=== PATIENT | male | born 1950 | race American Indian/Alaskan Native ===

== ENCOUNTER 2017-04-09 11:19 | Inpatient (IN) | payer MEDICARE ==
[2017-04-09] MEDS ORDERED: NACL 0.9% 1000 ML 1,000 ML ONE (11:38)
[2017-04-09] MEDS ORDERED: NACL 0.9% 1000 ML 1,000 ML IV ONE (11:48)
[2017-04-09 12:05] LABS: Basophils % (Auto) 0.7 % (0.0-1.8); Eosinophils % (Auto) 0.9 % (0.0-4.3); Mean Corpuscular HGB Conc 30 % (32-34); Mean Corpuscular Hemoglobin 28 pg (28-32); Mean Corpuscular Volume 93 fl (84-94); Platelet Count 408 K/mm3 (140-440); Red Blood Count 4.18 M/mm3 (3.65-5.03); Red Cell Distribution Width 19.1 % (13.2-15.2); White Blood Count 7.3 K/mm3 (4.5-11.0)
[2017-04-09 12:14] LABS: INR 0.92 (0.87-1.13)
[2017-04-09 12:15] LABS: Partial Thromboplastin Time 27.4 Sec. (24.2-36.6)
[2017-04-09 12:16] LABS: Hematocrit 38.7 % (35.5-45.6); Hemoglobin 11.6 gm/dl (11.8-15.2)
[2017-04-09] MEDS ORDERED: XOPENEX IH ONE ×4 (12:20→13:20)
[2017-04-09 12:23] LABS: Creatine Kinase MB 14.8 ng/mL (0.0-4.0)
[2017-04-09 12:24] LABS: Anion Gap 14 mmol/L; Blood Urea Nitrogen 24 mg/dL (9-20); Calcium 8.4 mg/dL (8.4-10.2); Carbon Dioxide 33 mmol/L (22-30); Chloride 106.1 mmol/L (98-107); Creatine Kinase 148 units/L (55-170); Glucose 83 mg/dL (75-100); Potassium 3.7 mmol/L (3.6-5.0); Sodium 149 mmol/L (137-145)
--- NOTE | 2017-04-09 12:33 | Emergency Department Report ---
ED Shortness of Breath HPI - General Chief Complaint: Arrhythmia/Palpitations Stated Complaint: ANNA Time Seen by Provider: 04/09/17 12:19 Source: patient, EMS Mode of arrival: Stretcher Limitations: No Limitations - History of Present Illness Initial Comments: Patient is a 66-year-old male known history of COPD coming with difficulty in breathing for the last 2-3 days just got worse today denied any fever nausea or vomiting no chest pain. MD Complaint: shortness of breath, cough -: Gradual Consistency: constant Improves With: bronchodilators Known History Of: COPD Associated Symptoms: pain with inspiration, cough, orhopnia Treatments Prior to Arrival: oxygen, bronchodilator - Related Data Allergies Allergy/AdvReac Type Severity Reaction Status Date / Time No Known Allergies Allergy Unverified 04/09/17 11:33 ED Review of Systems ROS: Stated complaint: ANNA Other details as noted in HPI Comment: All other systems reviewed and negative Constitutional: denies: chills, fever Respiratory: cough, orthopnea, shortness of breath, SOB with exertion, SOB at rest, wheezing. denies: stridor Cardiovascular: dyspnea on exertion, orthopnea. denies: chest pain, palpitations Gastrointestinal: denies: abdominal pain, nausea, vomiting, diarrhea, hematemesis Neurological: denies: headache, numbness, paresthesias ED Past Medical Hx - Past Medical History Previous Medical History?: Yes Hx Hypertension: Yes Hx Asthma: Yes Hx COPD: Yes Additional medical history: Cataracts - Surgical History Past Surgical History?: No - Social History Smoking Status: Former Smoker Substance Use Type: None ED Physical Exam - General Limitations: No Limitations General appearance: alert, in distress - Head Head exam: Present: atraumatic, normocephalic - Eye Eye exam: Present: normal appearance - ENT ENT exam: Present: normal exam - Neck Neck exam: Present: normal inspection, full ROM. Absent: tenderness, meningismus, lymphadenopathy, thyromegaly - Respiratory Respiratory exam: Present: respiratory distress, wheezes, rales, rhonchi, decreased breath sounds, prolonged expiratory. Absent: stridor, chest wall tenderness - Cardiovascular Cardiovascular Exam: Present: tachycardia - GI/Abdominal GI/Abdominal exam: Present: soft. Absent: tenderness, guarding, rebound, rigid - Back Exam Back exam: Present: normal inspection. Absent: CVA tenderness (R), CVA tenderness (L) - Neurological Exam Neurological exam: Present: alert, oriented X3, CN II-XII intact - Skin Skin exam: Present: warm. Absent: dry, intact, normal color ED Course Vital Signs 04/09/17 04/09/17 04/09/17 11:23 12:25 12:44 Temperature 98 F Pulse Rate 157 H 154 H Pulse Rate [ 150 H 152 H Anterior Bilateral Throughout] Respiratory 21 Rate Respiratory 27 H 25 H Rate [Anterior Bilateral Throughout] Blood Pressure 103/79 Blood Pressure 104/60 [Left] O2 Sat by Pulse 100 100 Oximetry 04/09/17 04/09/17 04/09/17 13:17 13:21 13:31 Temperature 97.4 F L Pulse Rate 107 H 102 H Pulse Rate [ 108 H Anterior Bilateral Throughout] Respiratory 26 H 21 Rate Respiratory 27 H Rate [Anterior Bilateral Throughout] Blood Pressure 123/72 Blood Pressure 116/65 [Left] O2 Sat by Pulse 100 100 Oximetry - Reevaluation(s) Reevaluation #1: 04/09/17 14:02 improved with bipap. discuss with DR Logan for admission. ED Medical Decision Making - Lab Data Result diagrams: 04/09/17 11:43 04/09/17 11:43 Critical care attestation.: If time is entered above; I have spent that time in minutes in the direct care of this critically ill patient, excluding procedure time. ED Disposition Clinical Impression: Acute respiratory failure with hypercapnia Disposition: OP ADMIT IP TO THIS HOSP Is pt being admited?: Yes Condition: Stable Referrals: CHRIS STANLEY MD [Primary Care Provider] - 3-5 Days
--- NOTE | 2017-04-09 12:49 | XRay Report ---
AP CHEST: HISTORY: Dysrhythmia, palpitations The lungs are hyperinflated. There is a focal opacity along the left hemidiaphragm behind the heart which probably represents eventration of the left hemidiaphragm. No convincing pneumonia, pleural effusion or pneumothorax. Heart size and pulmonary vascularity are within normal limits. IMPRESSION: Mild hyperinflation.
[2017-04-09 12:55] LABS: Alanine Aminotransferase 9 units/L (7-56); Albumin 3.3 g/dL (3.9-5); Albumin/Globulin Ratio 1.4 %; Alkaline Phosphatase 42 units/L (35-129); Total Protein 5.6 g/dL (6.3-8.2)
[2017-04-09] MEDS ORDERED: ATROVENT IH ONE ×2 (12:55→13:20)
[2017-04-09 12:57] LABS: Bilirubin,Direct < 0.2 mg/dL (0-0.2)
[2017-04-09 13:08] LABS: ISTAT Base Excess 4; ISTAT PCO2 78.6 (35-45); ISTAT PH 7.218 (7.35-7.45); ISTAT PO2 82 (80-105); ISTAT SO2 93; ISTAT TCO2 34
[2017-04-09 13:11] LABS: Cholesterol 206 mg/dL (50-199); HDL Cholesterol 114 mg/dL (40-59); LDL Cholesterol,Direct 78 mg/dL (50-130); Triglycerides 72 mg/dL (2-149)
--- NOTE | 2017-04-09 13:36 | Admit Criteria Form ---
Admission Criteria Documentation: RESPIRATORY FAILURE GRG Clinical Indications for Admission to Inpatient Care (Place 'X' for any and all applicable criteria): Hospital admission is needed for appropriate care of the patient because of acute respiratory failure or insufficiency as indicated by ANY ONE of the following(1)(2)(3)(4)(5)(6)(7)(8): [ ]I. Mechanical ventilation needed (acute invasive or noninvasive) [X]II. Severe ventilation deficit as indicated by ANY ONE of the following (9) [X]a) Respiratory acidosis (pH less than 7.32 and partial pressure of carbon dioxide greater than 40 mm Hg (5.3 kPa)) [X]b) Partial pressure of carbon dioxide greater than 44 mm Hg (5.9 kPa ) (new) [ ]c) Airflow measurements less than 25% of predicted (eg, peak expiratory flow rate less than 100 L/minute) [ ]d) Forced vital capacity less than 15 mL/kg of ideal body weight, or 50% decrease in vital capacity from baseline [ ]III. Noncardiac pulmonary edema not resolving with rapid emergency treatment (8) [ ]IV. Severe respiratory distress as indicated by ANY ONE of the following: [ ]a) Severe tachypnea (respiratory rate greater than 30, greater than 45 for 6-month-old, greater than 60 for ) [ ]b) Severe hypoxemia (partial pressure of oxygen less than 50 mm Hg ( 6.7 kPa) on greater than 50% oxygen or partial pressure of oxygen to FIO2 ratio less than 200) [ ]c) Mental status deterioration from respiratory disease [ ]V. Airway obstruction or inadequate protection [A](10)(11) The original [employer] content created by [employer] has been revised. The portions of the content which have been revised are identified through the use of italic text or in bold, and [facility] has neither reviewed nor approved the modified material. All other unmodified content is copyright [employer]. Please see references footnoted in the original [employer] edition 2016 Admission Criteria Met: Yes
[2017-04-09] MEDS ORDERED: TYLENOL PO PRN (14:19)
[2017-04-09] MEDS ORDERED: ZOFRAN IV PRN (14:19)
[2017-04-09] MEDS ORDERED: MILK OF MAGNESIA PO PRN (14:19)
[2017-04-09] MEDS ORDERED: DULCOLAX PR PRN (14:19)
[2017-04-09] MEDS ORDERED: DILAUDID IV PRN (14:19)
--- NOTE | 2017-04-09 14:19 | History and Physical Report ---
History of Present Illness Date of examination: 04/09/17 Date of admission: 04/09/17 Chief complaint: Increasing SOB for 1 week Altered sensorium for 1 day History of present illness: DUANE: Sent from Customer Account Coordinator office for SOB and Altered sensorium.Was due for cataract surgery and he was in Tachycardia /boz of which patient was sent by EMS.Patient fluctuates between normal mental status and confusionl.No fever/ Chills. Also some chest discomfort off and on. Past History Past Medical History: COPD, hypertension Past Surgical History: No surgical history Social history: lives with family, smoking Family history: hypertension Medications and Allergies Allergies Allergy/AdvReac Type Severity Reaction Status Date / Time No Known Allergies Allergy Unverified 04/09/17 11:33 Home Medications Medication Instructions Recorded Confirmed Last Taken Type Brinzolamide/Brimonidine Tart 8 ml OP TID 04/09/17 04/09/17 04/09/17 History [Simbrinza 1%-0.2% Eye Drops] Clopidogrel Bisulfate [Plavix] 75 mg PO DAILY 04/09/17 04/09/17 04/09/17 History Fluticasone/Salmeterol [Advair 1 puff IH BID 04/09/17 04/09/17 04/09/17 History Diskus 500-50 mcg] LORazepam [Ativan] 0.5 mg PO PRN 04/09/17 04/09/17 Unknown History Theophylline Anhydrous [Baldomero-24] 300 mg PO BID 04/09/17 04/09/17 04/09/17 History Review of Systems All systems: negative Cardiovascular: chest pain, shortness of breath Respiratory: shortness of breath, dyspnea on exertion, congestion Exam - Physical Exam Narrative exam: In Moderate resp distress - Constitutional Vitals: Temp Pulse Resp BP Pulse Ox 97.4 F L 102 H 21 116/65 100 04/09/17 13:31 04/09/17 13:31 04/09/17 13:31 04/09/17 13:31 04/09/17 13:31 General appearance: Present: severe distress, well-nourished - EENT Eyes: Present: PERRL ENT: hearing intact, clear oral mucosa - Neck Neck: Present: supple, normal ROM - Respiratory Respiratory effort: normal Respiratory: bilateral: diminished, rales, rhonchi - Cardiovascular Heart rate: 158 Heart Sounds: Present: S1 & S2. Absent: rub, click - Extremities Extremities: pulses symmetrical, No edema Peripheral Pulses: within normal limits - Abdominal General gastrointestinal: Present: soft, non-tender, non-distended, normal bowel sounds Male genitourinary: Present: normal - Integumentary Integumentary: Present: clear, warm, dry - Musculoskeletal Musculoskeletal: gait normal, strength equal bilaterally - Psychiatric Psychiatric: appropriate mood/affect, intact judgment & insight - Neurologic Neurologic: CNII-XII intact, moves all extremities Results - Labs CBC & Chem 7: 04/10/17 04:50 04/10/17 04:50 Labs: Laboratory Last Values WBC 7.3 K/mm3 (4.5-11.0) 04/09/17 11:43 RBC 4.18 M/mm3 (3.65-5.03) 04/09/17 11:43 Hgb 11.6 gm/dl (11.8-15.2) L 04/09/17 11:43 Hct 38.7 % (35.5-45.6) 04/09/17 11:43 MCV 93 fl (84-94) 04/09/17 11:43 MCH 28 pg (28-32) 04/09/17 11:43 MCHC 30 % (32-34) L 04/09/17 11:43 RDW 19.1 % (13.2-15.2) H 04/09/17 11:43 Plt Count 408 K/mm3 (140-440) 04/09/17 11:43 Lymph % (Auto) 12.8 % (13.4-35.0) L 04/09/17 11:43 [place] % (Auto) 12.4 % (0.0-7.3) H 04/09/17 11:43 Eos % (Auto) 0.9 % (0.0-4.3) 04/09/17 11:43 Baso % (Auto) 0.7 % (0.0-1.8) 04/09/17 11:43 Lymph # 0.9 K/mm3 (1.2-5.4) L 04/09/17 11:43 [place] # 0.9 K/mm3 (0.0-0.8) H 04/09/17 11:43 Eos # 0.1 K/mm3 (0.0-0.4) 04/09/17 11:43 Baso # 0.1 K/mm3 (0.0-0.1) 04/09/17 11:43 Seg Neutrophils % 73.2 % (40.0-70.0) H 04/09/17 11:43 Seg Neutrophils # 5.4 K/mm3 (1.8-7.7) 04/09/17 11:43 PT 12.8 Sec. (12.2-14.9) 04/09/17 11:43 INR 0.92 (0.87-1.13) 04/09/17 11:43 APTT 27.4 Sec. (24.2-36.6) 04/09/17 11:43 D-Dimer 257.5 ng/mlDDU (0-234) H 04/09/17 11:43 POC ABG pH 7.218 (7.35-7.45) L 04/09/17 12:50 POC ABG pCO2 78.6 (35-45) H 04/09/17 12:50 POC ABG pO2 82 (80-105) 04/09/17 12:50 POC ABG HCO3 32.0 04/09/17 12:50 POC ABG Total CO2 34 04/09/17 12:50 POC ABG O2 Sat 93 04/09/17 12:50 POC ABG Base Excess 4 04/09/17 12:50 FiO2 28 % 04/09/17 12:50 Sodium 149 mmol/L (137-145) H 04/09/17 11:43 Potassium 3.7 mmol/L (3.6-5.0) 04/09/17 11:43 Chloride 106.1 mmol/L (98-107) 04/09/17 11:43 Carbon Dioxide 33 mmol/L (22-30) H 04/09/17 11:43 Anion Gap 14 mmol/L 04/09/17 11:43 BUN 24 mg/dL (9-20) H 04/09/17 11:43 Creatinine 0.5 mg/dL (0.8-1.5) L 04/09/17 11:43 Estimated GFR > 60 ml/min 04/09/17 11:43 BUN/Creatinine Ratio 48.00 % 04/09/17 11:43 Glucose 83 mg/dL (75-100) 04/09/17 11:43 Calcium 8.4 mg/dL (8.4-10.2) 04/09/17 11:43 Total Bilirubin 0.20 mg/dL (0.1-1.2) 04/09/17 11:43 Direct Bilirubin < 0.2 mg/dL (0-0.2) 04/09/17 11:43 AST 17 units/L (5-40) 04/09/17 11:43 ALT 9 units/L (7-56) 04/09/17 11:43 Alkaline Phosphatase 42 units/L (35-129) 04/09/17 11:43 Total Creatine Kinase 148 units/L (55-170) 04/09/17 11:43 CK-MB (CK-2) 14.8 ng/mL (0.0-4.0) H 04/09/17 11:43 CK-MB (CK-2) Rel Index 10.0 (0-4) H 04/09/17 11:43 Troponin T 0.108 ng/mL (0.00-0.029) H* 04/09/17 11:43 NT-Pro-B Natriuret Pep 2024 pg/mL (0-900) H 04/09/17 11:43 Total Protein 5.6 g/dL (6.3-8.2) L 04/09/17 11:43 Albumin 3.3 g/dL (3.9-5) L 04/09/17 11:43 Albumin/Globulin Ratio 1.4 % 04/09/17 11:43 Triglycerides 72 mg/dL (2-149) 04/09/17 11:43 Cholesterol 206 mg/dL (50-199) H 04/09/17 11:43 LDL Cholesterol Direct 78 mg/dL (50-130) 04/09/17 11:43 HDL Cholesterol 114 mg/dL (40-59) H 04/09/17 11:43 Cholesterol/HDL Ratio 1.80 % 04/09/17 11:43 Short CBC 04/09/17 04/09/17 04/10/17 Range/Units 11:43 14:57 04:50 WBC 7.3 8.5 7.2 (4.5-11.0) K/mm3 Hgb 11.6 L 11.2 L 10.1 L (11.8-15.2) gm/dl Hct 38.7 36.5 33.1 L (35.5-45.6) % Plt Count 408 394 357 (140-440) K/mm3 BMP 04/09/17 04/10/17 11:43 04:50 Sodium 149 H 145 Potassium 3.7 4.5 D Chloride 106.1 105.3 Carbon Dioxide 33 H 28 BUN 24 H 23 H Creatinine 0.5 L 0.5 L Glucose 83 104 H Calcium 8.4 8.2 L Cardiac Enzymes 04/09/17 Range/Units 11:43 Total Creatine Kinase 148 (55-170) units/L CK-MB (CK-2) 14.8 H (0.0-4.0) ng/mL Troponin T 0.108 H* (0.00-0.029) ng/mL Liver Function 04/09/17 04/10/17 Range/Units 11:43 04:50 Total Bilirubin 0.20 0.30 (0.1-1.2) mg/dL Direct Bilirubin < 0.2 (0-0.2) mg/dL AST 17 15 (5-40) units/L ALT 9 8 (7-56) units/L Alkaline Phosphatase 42 38 (35-129) units/L Albumin 3.3 L 3.1 L (3.9-5) g/dL - Imaging and Cardiology EKG: report reviewed (156/min Marked ST abnormality) Chest x-ray: report reviewed (Mild Hyperinflation) Assessment and Plan Advance Directives: Yes (FC) VTE prophylaxis?: Chemical Plan of care discussed with patient/family: Yes - Patient Problems (1) Acute respiratory failure with hypercapnia Current Visit: Yes Status: Acute Plan to address problem: Patient initiated on BIPAP IV solumedrol IV Levaquin and Duonebs q3HPRN and q6 RTC.Pulmonary consult requested. CTA ordered (2) COPD exacerbation Current Visit: Yes Status: Acute Plan to address problem: As above (3) Chest pain Current Visit: Yes Status: Acute Qualifiers: Chest pain type: unspecified Ischemic chest pain type: I Qualified Code(s ): R07.9 - Chest pain, unspecified Plan to address problem: Lexiscan for !0th b/c of CTA (4) HTN (hypertension) Current Visit: Yes Status: Chronic Qualifiers: Hypertension type: essential hypertension Qualified Code(s): I10 - Essential (primary) hypertension Plan to address problem: Cont Antihypertensives (5) Tachycardia Current Visit: Yes Status: Acute Plan to address problem: As a manifestation of resp failure.Should resolve with improving resp failure. (6) DVT prophylaxis Current Visit: Yes Status: Acute Plan to address problem: on lovenox
[2017-04-09] MEDS ORDERED: DUONEB *Not for PRN Use IH ×2 (14:27→19:59)
[2017-04-09] MEDS ORDERED: DUONEB *Not for PRN Use IH ONE (14:32)
[2017-04-09] MEDS ORDERED: PROVENTIL IH PRN ×2 (14:35→20:08)
[2017-04-09] MEDS: DUONEB *Not for PRN Use IH SCH ×2 (14:36→21:50)
[2017-04-09 15:29] LABS: Basophils % (Auto) 0.6 % (0.0-1.8); Eosinophils % (Auto) 0.4 % (0.0-4.3); Hematocrit 36.5 % (35.5-45.6); Hemoglobin 11.2 gm/dl (11.8-15.2); Mean Corpuscular HGB Conc 31 % (32-34); Mean Corpuscular Hemoglobin 28 pg (28-32); Mean Corpuscular Volume 92 fl (84-94); Platelet Count 394 K/mm3 (140-440); Red Blood Count 3.97 M/mm3 (3.65-5.03); Red Cell Distribution Width 19.1 % (13.2-15.2); White Blood Count 8.5 K/mm3 (4.5-11.0)
[2017-04-09 17:00] LABS: ISTAT Base Excess 6; ISTAT HCO3 32.5; ISTAT PCO2 68.7 (35-45); ISTAT PH 7.283 (7.35-7.45); ISTAT PO2 71 (80-105); ISTAT SO2 91; ISTAT TCO2 35
[2017-04-09] MEDS: LEVAQUIN 750MG/150ML 750 MG/150 ML BAG IV SCH (18:00)
--- NOTE | 2017-04-09 19:11 | Event Note ---
Date: 04/09/17 thank you for asking us to participate in the care of this patient. Full consultation dictated.Dictation consultation number [id number]. IMMPRESSION: 1. Acute on chronic hypercapnic respiratory failure. 2. Exagerbation of COPD. 3. Acute bronchitis. 4. HTN. PLAN: 1.BIPAP 20/6, rate 20, FIO2 30%. 2.Albuterol/atrovent aerosol treatments q 6 hours. 3.Continue I/V solumedral. 4.Continue Levaquine. 5.Continue Lovenox. 6.Recommend to D/C Theophylline. 7. Ango CT of the chest.
[2017-04-09] MEDS ORDERED: BRINZOLAMIDE OP SCH ×2 (20:00)
[2017-04-09] MEDS ORDERED: BRIMONIDINE TART OP SCH ×2 (20:00)
[2017-04-09] MEDS ORDERED: ATIVAN PO SCH (20:00)
[2017-04-09] MEDS: PULMICORT IH SCH (21:50)
[2017-04-09] MEDS ORDERED: THEO-24 PO SCH (22:00)
[2017-04-09] MEDS ORDERED: NON-FORMULARY (Fluticasone/Salmeterol [Advair Diskus 500-50 Mcg] 1 PUFF) IH SCH (22:00)
[2017-04-09] MEDS ORDERED: LOVENOX SUB-Q SCH (22:00)
[2017-04-09] MEDS: PLAVIX PO SCH (22:23)
[2017-04-09 23:17] LABS: ISTAT Base Excess 8; ISTAT HCO3 32.2; ISTAT PCO2 51.2 (35-45); ISTAT PH 7.406 (7.35-7.45); ISTAT PO2 110 (80-105); ISTAT SO2 98; ISTAT TCO2 34
[2017-04-10] MEDS: DUONEB *Not for PRN Use IH SCH ×4 (02:30→20:21)
--- NOTE | 2017-04-10 03:39 | Consultation ---
CONSULTED BY: Dr. Elizabeth Logan. PAINT PREPARER: Dr. Titi Morales. REASON FOR CONSULTATION: 1. Acute on chronic hypercapnic respiratory failure. 2. Exacerbation of COPD. 3. Acute bronchitis. Dr. Logan: Thank you for asking me to participate in the care of this patient. This is a 66-year-old -[place] male who came to the Emergency Room with a complaint of palpitations, shortness of breath and cough. The patient's blood gas obtained showed a pH 7.21, pCO2 of 79, pO2 of 82, bicarbonate 34 and O2 saturation 93% on 2 liters of O2. The patient in acute on chronic hypercapnic respiratory failure and the patient placed on BiPAP 20/6 rate of 20, FiO2 of 30%. The patient has a history of COPD. He has a heavy history of smoking 3 packs a day for almost 30 years. He said he stopped smoking recently. He denies any alcohol or drug abuse. 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 He is . He has 4 children. ALLERGIES: He denies any allergies to medications. PAST MEDICAL HISTORY: He has a history of hypertension and COPD. He denies other medical problems. The patient's chest x-ray obtained in the Emergency Room reported mild hyperinflation. PHYSICAL EXAMINATION: GENERAL: The patient on BiPAP, having a mild shortness of breath. VITAL SIGNS: Temperature 97.6, pulse 103, respirations 21 and blood pressure 120/80. HEENT: Eyes, pupils are equal and reactive. Extraocular muscles intact. Throat, there is slight inflammation. NECK: Supple, no lymphadenopathy, no carotid bruit. HEART: Regular rate and rhythm at the rate of 100. LUNGS: No wheezes, no rhonchi, but there is prolonged expiratory phase. ABDOMEN: Soft, bowel sounds present. No CVA tenderness. MUSCULOSKELETAL: No edema, no clubbing, no cyanosis. NEUROLOGIC: DTR present. Babinski negative. No focal neurological deficit. LABORATORY RESULTS: CBC: WBC 8.5, hemoglobin 11.2, hematocrit 32.5, platelet count 394,000. PT 12.8, INR 0.92, PTT 27.4, D-dimer 267.5 is high. CMP, sodium 140, potassium 3.7, BUN 24, creatinine 0.5 and O2 is 0.5, troponin level 0.1, BNP 2024, CPK 148, CK-MB 42.8. Cholesterol 206, LDL 78, HDL 114. IMPRESSION: 1. Acute on chronic hypercapnic respiratory failure. 2. Exacerbation of chronic obstructive pulmonary disease. 3. Acute bronchitis. 4. Hypertension. PLAN: 1. BiPAP 20/6, rate of 20, FiO2 of 50%. 2. Albuterol and Atrovent q. 6 hours. 3. Continue IV Solu-Medrol. 4. Continue Levaquin. 5. Continue Lovenox. 6. Recommend to discontinue theophylline. 7. Angio CT of the chest. I want to thank Dr. Logan for this consultation. I will follow the patient with him. JOB# [id number] RSPrince/NTS
[2017-04-10 06:02] LABS: Hematocrit 33.1 % (35.5-45.6); Hemoglobin 10.1 gm/dl (11.8-15.2); Mean Corpuscular HGB Conc 31 % (32-34); Mean Corpuscular Hemoglobin 28 pg (28-32); Mean Corpuscular Volume 93 fl (84-94); Platelet Count 357 K/mm3 (140-440); Red Blood Count 3.58 M/mm3 (3.65-5.03); White Blood Count 7.2 K/mm3 (4.5-11.0)
[2017-04-10 06:23] LABS: Alanine Aminotransferase 8 units/L (7-56); Albumin 3.1 g/dL (3.9-5); Albumin/Globulin Ratio 1.5 %; Alkaline Phosphatase 38 units/L (35-129); Anion Gap 16 mmol/L; Blood Urea Nitrogen 23 mg/dL (9-20); Calcium 8.2 mg/dL (8.4-10.2); Carbon Dioxide 28 mmol/L (22-30); Chloride 105.3 mmol/L (98-107); Glucose 104 mg/dL (75-100); Potassium 4.5 mmol/L (3.6-5.0); Sodium 145 mmol/L (137-145); Total Protein 5.2 g/dL (6.3-8.2)
[2017-04-10 07:08] LABS: Basophils % (Manual) 0 % (0.0-1.8); Blastocytes % (Manual) 0 %; Diff Status Complete; Eosinophils % (Manual) 0 % (0.0-4.3); Platelet Estimate Consistent w Auto; RBC Morphology Normal
[2017-04-10] MEDS: BROVANA NEBU IH SCH ×2 (08:40→20:21)
[2017-04-10] MEDS: PULMICORT IH SCH ×2 (08:40→20:21)
[2017-04-10] MEDS ORDERED: NACL ONE (08:44)
--- NOTE | 2017-04-10 10:36 | Cat Scan Report ---
CT angiography of the chest including 3-D reconstructed images. History: Elevated d-dimer. Findings: There is no evidence of pulmonary embolus. Emphasematous changes are seen within the lungs, but no focal infiltrates or nodules are seen. There is a small right pleural effusion. The mediastinum and hilar regions are normal. Impression: No evidence of pulmonary emboli. COPD findings are noted. There is a tiny right pleural effusion.
[2017-04-10] MEDS: PLAVIX PO SCH (10:49)
[2017-04-10] MEDS: LEVAQUIN 750MG/150ML 750 MG/150 ML BAG IV SCH (10:50)
--- NOTE | 2017-04-10 14:22 | Progress Note ---
Assessment and Plan Patient resting on 2 litres O2. O2 saturation 100%. Patient still weak. No acute respiratory distress. - Patient Problems (1) Acute respiratory failure with hypercapnia Current Visit: Yes Status: Acute Plan to address problem: Continue BIPAP. Albuterol/atrovent aerosol treatments. Continue I/V solumedral Continue Levaquine. Continue S/C Lovenox. (2) COPD exacerbation Current Visit: Yes Status: Acute Plan to address problem: Continue BIPAP. Albuterol/atrovent aerosol treatments. Continue I/V solumedral Continue Levaquine. Continue S/C Lovenox. (3) HTN (hypertension) Current Visit: Yes Status: Chronic Qualifiers: Hypertension type: essential hypertension Qualified Code(s): I10 - Essential (primary) hypertension Plan to address problem: Management as per primary care. Subjective Date of service: 04/10/17 Interval history: Patient resting on 2 litres O2. O2 saturation 100%. Patient still weak. No acute respiratory distress. Objective Vital Signs - 12hr 04/10/17 04/10/17 04/10/17 02:32 02:44 04:00 Temperature 98.1 F Pulse Rate 99 H 109 H Pulse Rate [ 108 H 99 H Anterior Bilateral Throughout] Respiratory 22 18 Rate Respiratory 22 20 Rate [Anterior Bilateral Throughout] Blood Pressure 123/90 O2 Sat by Pulse 99 97 Oximetry 04/10/17 04/10/17 08:00 12:05 Temperature 97.5 F L 98.1 F Pulse Rate 100 H 114 H Pulse Rate [ Anterior Bilateral Throughout] Respiratory 18 18 Rate Respiratory Rate [Anterior Bilateral Throughout] Blood Pressure 114/80 126/80 O2 Sat by Pulse 100 100 Oximetry Constitutional: no acute distress, alert Eyes: non-icteric ENT: oropharynx moist Neck: supple, no lymphadenopathy Ascultation: Bilateral: diminished breath sounds Cardiovascular: regular rate and rhythm Gastrointestinal: normoactive bowel sounds, soft, non-tender Integumentary: normal Extremities: no cyanosis, no edema Neurologic: normal mental status, non-focal exam, pupils equal and round, CN II- XII normal Psychiatric: depressed CBC and BMP: 04/10/17 04:50 04/10/17 04:50 ABG, PT/INR, D-dimer: ABG POC ABG pH 7.406 (7.35-7.45) 04/09/17 21:02 POC ABG pCO2 51.2 (35-45) H 04/09/17 21:02 POC ABG pO2 110 (80-105) H 04/09/17 21:02 POC ABG HCO3 32.2 04/09/17 21:02 POC ABG Total CO2 34 04/09/17 21:02 POC ABG O2 Sat 98 04/09/17 21:02 PT/INR, D-dimer PT 12.8 Sec. (12.2-14.9) 04/09/17 11:43 INR 0.92 (0.87-1.13) 04/09/17 11:43 D-Dimer 257.5 ng/mlDDU (0-234) H 04/09/17 11:43 Abnormal lab findings: Abnormal Labs 04/09/17 04/09/17 04/09/17 14:57 16:42 21:02 RBC Hgb 11.2 L Hct MCHC 31 L RDW 19.1 H Lymph % (Auto) 7.9 L Lymph # 0.7 L Seg Neutrophils % 86.9 H Seg Neuts % (Manual) Lymphocytes % (Manual) Lymphocytes # (Manual) POC ABG pH 7.283 L POC ABG pCO2 68.7 H 51.2 H POC ABG pO2 71 L 110 H BUN Creatinine Glucose Calcium CK-MB (CK-2) CK-MB (CK-2) Rel Index Total Protein Albumin 04/10/17 04/10/17 04/10/17 04:50 04:50 11:37 RBC 3.58 L Hgb 10.1 L Hct 33.1 L MCHC 31 L RDW 19.0 H Lymph % (Auto) Lymph # Seg Neutrophils % Seg Neuts % (Manual) 88.0 H Lymphocytes % (Manual) 8.0 L Lymphocytes # (Manual) 0.6 L POC ABG pH POC ABG pCO2 POC ABG pO2 BUN 23 H Creatinine 0.5 L Glucose 104 H Calcium 8.2 L CK-MB (CK-2) 13.0 H CK-MB (CK-2) Rel Index 13.8 H Total Protein 5.2 L Albumin 3.[address] scan - chest: report reviewed (No pulmonary emboli. changes of COPD. Tiny pleural effusion.)
--- NOTE | 2017-04-10 16:11 | Progress Note ---
Assessment and Plan Acute respiratory failure with hypercapnia Patient initiated on BIPAP IV solumedrol IV Levaquin and Duonebs q3HPRN and q6 RTC.Pulmonary consult requested. CTA ordered COPD exacerbation As above Chest pain Lexiscan tomorrow b/c of CTA was done today troponin trended down HTN (hypertension) Cont Antihypertensives Tachycardia As a manifestation of resp failure. Should resolve with improving resp failure. DVT prophylaxis on lovenox Subjective Date of service: 04/10/17 Interval history: pt seen and examined. denies any chest pain or SOB Objective - Constitutional Vitals: Vital Signs - 12hr 04/10/17 04/10/17 08:00 12:05 Temperature 97.5 F L 98.1 F Pulse Rate 100 H 114 H Respiratory 18 18 Rate Blood Pressure 114/80 126/80 O2 Sat by Pulse 100 100 Oximetry General appearance: Present: no acute distress, other (malnurished) - EENT Eyes: PERRL, EOM intact ENT: hearing intact, clear oral mucosa Ears: bilateral: normal - Neck Neck: supple, normal ROM - Respiratory Respiratory effort: normal Respiratory: bilateral: diminished - Cardiovascular Rhythm: regular Heart Sounds: Present: S1 & S2. Absent: gallop, rub Extremities: pulses intact, No edema, normal color, Full ROM - Gastrointestinal General gastrointestinal: Present: soft, non-tender, non-distended, normal bowel sounds - Integumentary Integumentary: clear, warm, dry - Musculoskeletal Musculoskeletal: 1, strength equal bilaterally - Neurologic Neurologic: moves all extremities - Psychiatric Psychiatric: memory intact, appropriate mood/affect, intact judgment & insight - Labs CBC & Chem 7: 04/10/17 04:50 04/10/17 04:50 Labs: Abnormal lab results 04/09/17 04/09/17 04/10/17 Range/Units 16:42 21:02 04:50 RBC 3.58 L (3.65-5.03) M/mm3 Hgb 10.1 L (11.8-15.2) gm/dl Hct 33.1 L (35.5-45.6) % MCHC 31 L (32-34) % RDW 19.0 H (13.2-15.2) % Seg Neuts % (Manual) 88.0 H (40.0-70.0) % Lymphocytes % (Manual) 8.0 L (13.4-35.0) % Lymphocytes # (Manual) 0.6 L (1.2-5.4) K/mm3 POC ABG pH 7.283 L (7.35-7.45) POC ABG pCO2 68.7 H 51.2 H (35-45) POC ABG pO2 71 L 110 H (80-105) BUN (9-20) mg/dL Creatinine (0.8-1.5) mg/dL Glucose (75-100) mg/dL Calcium (8.4-10.2) mg/dL CK-MB (CK-2) (0.0-4.0) ng/mL CK-MB (CK-2) Rel Index (0-4) Total Protein (6.3-8.2) g/dL Albumin (3.9-5) g/dL 04/10/17 04/10/17 Range/Units 04:50 11:37 RBC (3.65-5.03) M/mm3 Hgb (11.8-15.2) gm/dl Hct (35.5-45.6) % MCHC (32-34) % RDW (13.2-15.2) % Seg Neuts % (Manual) (40.0-70.0) % Lymphocytes % (Manual) (13.4-35.0) % Lymphocytes # (Manual) (1.2-5.4) K/mm3 POC ABG pH (7.35-7.45) POC ABG pCO2 (35-45) POC ABG pO2 (80-105) BUN 23 H (9-20) mg/dL Creatinine 0.5 L (0.8-1.5) mg/dL Glucose 104 H (75-100) mg/dL Calcium 8.2 L (8.4-10.2) mg/dL CK-MB (CK-2) 13.0 H (0.0-4.0) ng/mL CK-MB (CK-2) Rel Index 13.8 H (0-4) Total Protein 5.2 L (6.3-8.2) g/dL Albumin 3.1 L (3.9-5) g/dL - Imaging and cardiology Chest x-ray: report reviewed CT scan - chest: report reviewed
[2017-04-10] MEDS: CARDIZEM PO SCH (21:11)
[2017-04-10] MEDS: LOVENOX SUB-Q SCH (21:12)
[2017-04-10] MEDS ORDERED: COREG PO SCH (22:00)
[2017-04-10] MEDS ORDERED: LOVENOX SUB-Q SCH (22:00)
[2017-04-11] MEDS: DUONEB *Not for PRN Use IH SCH ×4 (01:42→19:55)
[2017-04-11] MEDS: PERCOCET 5/325 PO PRN ×2 (02:16→22:54)
[2017-04-11] MEDS: CARDIZEM PO SCH ×5 (06:34→23:00)
[2017-04-11] MEDS: BROVANA NEBU IH SCH ×2 (08:29→19:55)
[2017-04-11] MEDS: PULMICORT IH SCH ×2 (08:30→19:55)
[2017-04-11] MEDS: LOVENOX SUB-Q SCH ×2 (11:00→22:54)
[2017-04-11] MEDS: PLAVIX PO SCH (11:00)
[2017-04-11] MEDS: LEVAQUIN PO SCH (11:00)
--- NOTE | 2017-04-11 12:28 | Progress Note ---
Subjective Date of service: 04/11/17 Interval history: Seen and examined at bedside; 24 hour events reviewed; nursing and respiratory care staff consulted; no adverse overnight events reported to me; Objective Vital Signs - 12hr 04/11/17 04/11/17 04/11/17 01:00 01:12 05:50 Temperature 98.4 F 97.6 F Pulse Rate 115 H 102 H 101 H Pulse Rate [ Anterior Bilateral Throughout] Respiratory 20 18 Rate Respiratory Rate [Anterior Bilateral Throughout] Blood Pressure 118/84 120/74 O2 Sat by Pulse 97 97 Oximetry 04/11/17 04/11/17 04/11/17 06:39 08:31 08:46 Temperature Pulse Rate 102 H Pulse Rate [ 102 H 106 H Anterior Bilateral Throughout] Respiratory Rate Respiratory 17 20 Rate [Anterior Bilateral Throughout] Blood Pressure O2 Sat by Pulse 97 Oximetry 04/11/17 04/11/17 08:59 09:19 Temperature 97.6 F Pulse Rate 110 H 104 H Pulse Rate [ Anterior Bilateral Throughout] Respiratory 21 20 Rate Respiratory Rate [Anterior Bilateral Throughout] Blood Pressure 167/91 O2 Sat by Pulse 98 97 Oximetry Constitutional: no acute distress, alert Eyes: non-icteric ENT: oropharynx moist Neck: supple, no lymphadenopathy Ascultation: Bilateral: diminished breath sounds Cardiovascular: regular rate and rhythm Gastrointestinal: normoactive bowel sounds, soft, non-tender Integumentary: normal Extremities: no cyanosis, no edema Neurologic: normal mental status, non-focal exam, pupils equal and round, CN II- XII normal Psychiatric: depressed CBC and BMP: 04/10/17 04:50 04/10/17 04:50 ABG, PT/INR, D-dimer: ABG POC ABG pH 7.406 (7.35-7.45) 04/09/17 21:02 POC ABG pCO2 51.2 (35-45) H 04/09/17 21:02 POC ABG pO2 110 (80-105) H 04/09/17 21:02 POC ABG HCO3 32.2 04/09/17 21:02 POC ABG Total CO2 34 04/09/17 21:02 POC ABG O2 Sat 98 04/09/17 21:02 PT/INR, D-dimer PT 12.8 Sec. (12.2-14.9) 04/09/17 11:43 INR 0.92 (0.87-1.13) 04/09/17 11:43 D-Dimer 257.5 ng/mlDDU (0-234) H 04/09/17 11:43 Abnormal lab findings: Abnormal Labs 04/09/17 04/09/17 04/09/17 14:57 16:42 21:02 RBC Hgb 11.2 L Hct MCHC 31 L RDW 19.1 H Lymph % (Auto) 7.9 L Lymph # 0.7 L Seg Neutrophils % 86.9 H Seg Neuts % (Manual) Lymphocytes % (Manual) Lymphocytes # (Manual) POC ABG pH 7.283 L POC ABG pCO2 68.7 H 51.2 H POC ABG pO2 71 L 110 H BUN Creatinine Glucose Calcium CK-MB (CK-2) CK-MB (CK-2) Rel Index Total Protein Albumin 04/10/17 04/10/17 04/10/17 04:50 04:50 11:37 RBC 3.58 L Hgb 10.1 L Hct 33.1 L MCHC 31 L RDW 19.0 H Lymph % (Auto) Lymph # Seg Neutrophils % Seg Neuts % (Manual) 88.0 H Lymphocytes % (Manual) 8.0 L Lymphocytes # (Manual) 0.6 L POC ABG pH POC ABG pCO2 POC ABG pO2 BUN 23 H Creatinine 0.5 L Glucose 104 H Calcium 8.2 L CK-MB (CK-2) 13.0 H CK-MB (CK-2) Rel Index 13.8 H Total Protein 5.2 L Albumin 3.1 L
--- NOTE | 2017-04-11 14:34 | Consultation ---
History of Present Illness Consult date: 04/11/17 History of present illness: This is a 66yr old male who was brought in for an abnormal ECG. Cardiac consultation was requested. His ECG shows atrial flutter with rapid ventricular response. He was treated with cardizem and has since reverted to a sinus rhythm with PACs. Patient complains of vision changes but denies chest pain and shortness of breath. Patient reports a history of atrial fibrillation but states is not on anticoagulation due to GI bleed a year ago. Laboratory studies shows a stable hematocrit of 33.1. He denies prior cardiac workup. He does not follow with a lump inspector as an outpatient. Co-morbidities includes a prior CVA for which he takes plavix, Hypertension and COPD. Past History Past Medical History: COPD, hypertension Past Surgical History: No surgical history Social history: lives with family, smoking Family history: hypertension Medications and Allergies Allergies Allergy/AdvReac Type Severity Reaction Status Date / Time No Known Allergies Allergy Unverified 04/09/17 11:33 Home Medications Medication Instructions Recorded Confirmed Last Taken Type Brinzolamide/Brimonidine Tart 8 ml OP TID 04/09/17 04/09/17 04/09/17 History [Simbrinza 1%-0.2% Eye Drops] Clopidogrel Bisulfate [Plavix] 75 mg PO DAILY 04/09/17 04/09/17 04/09/17 History Fluticasone/Salmeterol [Advair 1 puff IH BID 04/09/17 04/09/17 04/09/17 History Diskus 500-50 mcg] LORazepam [Ativan] 0.5 mg PO PRN 04/09/17 04/09/17 Unknown History Theophylline Anhydrous [Baldomero-24] 300 mg PO BID 04/09/17 04/09/17 04/09/17 History Active Meds: Active Medications Acetaminophen (Tylenol) 650 mg PO Q4H PRN PRN Reason: Pain MILD(1-3)/Fever >100.5/OWEN Albuterol (Proventil) 2.5 mg IH Q4HRT PRN PRN Reason: Shortness Of Breath Albuterol (Proventil) 2.5 mg IH Q4HRT PRN PRN Reason: Shortness Of Breath Albuterol/Ipratropium (Duoneb *Not For Prn Use*) 1 ampul IH Q6HRT [facility] Last Admin: 04/11/17 14:26 Dose: Not Given Arformoterol Tartrate (Brovana Nebu) 15 mcg IH Q12HRT [facility] Last Admin: 04/11/17 08:29 Dose: 15 mcg Bisacodyl (Dulcolax) 10 mg [place] QDAY PRN PRN Reason: Constipation unrelieved by MOM Budesonide (Pulmicort) 0.5 mg IH Q12HRT [facility] Last Admin: 04/11/17 08:30 Dose: 0.5 mg Clopidogrel Bisulfate (Plavix) 75 mg PO DAILY [facility] Last Admin: 04/11/17 11:00 Dose: 75 mg Diltiazem HCl (Cardizem) 30 mg PO Q6HR [facility] Last Admin: 04/11/17 06:39 Dose: 30 mg Enoxaparin Sodium (Lovenox) 50 mg 1 mg/kg (50 mg) SUB-Q Q12HR [facility] Last Admin: 04/11/17 11:00 Dose: 50 mg Hydromorphone HCl (Dilaudid) 0.5 mg IV Q3H PRN PRN Reason: Pain , Severe (7-10) Levofloxacin (Levaquin) 750 mg PO Q24HR [facility] Last Admin: 04/11/17 11:00 Dose: 750 mg Lorazepam (Ativan) 0.5 mg PO PRN [facility] Last Admin: 04/09/17 22:35 Dose: 0.5 mg Magnesium Hydroxide (Milk Of Magnesia) 30 ml PO Q4H PRN PRN Reason: Constipation Methylprednisolone Sodium Succinate (Solu-Medrol) 40 mg IV Q24HR [facility] Last Admin: 04/11/17 11:00 Dose: 40 mg Miscellaneous Medication (Brinzolamide/Brimonidine Tart [Simbrinza 1%-0.2% Eye Drops]) 8 ml OP TID [facility] Ondansetron HCl (Zofran) 4 mg IV Q8H PRN PRN Reason: N/V unrelieved by Reglan Oxycodone/Acetaminophen (Percocet 5/325) 1 tab PO Q6H PRN PRN Reason: Pain, Moderate (4-6) Last Admin: 04/11/17 02:16 Dose: 1 tab Physical Examination Vital Signs Temp Pulse BP Pulse Ox 98 F 157 H 103/79 100 04/09/17 11:23 04/09/17 11:23 04/09/17 11:23 04/09/17 11:23 General appearance: no acute distress HEENT: Positive: PERRL Neck: Positive: trachea midline Cardiac: Positive: Irregularly Regular Results 04/10/17 04:50 04/10/17 04:50 Assessment and Plan Atrial flutter, paroxysmal Prior CVA on plavix as an outpatient COPD on home O2 Hypertension
--- NOTE | 2017-04-11 16:38 | Progress Note ---
Assessment and Plan Acute respiratory failure with hypercapnia Patient initiated on BIPAP on admission, IV solumedrol IV Levaquin and Duonebs q3HPRN and q6 RTC. Pulmonary consulted, CTA negative for PE off BiPAP, resting on 2L N/c COPD exacerbation As above Paroxysmal atrial fibrillation - placed on therapeutic lovenox and cardizem - consulted cardiology Chest pain, atypical resolved now Lexiscan on hold, will follow with cardiology troponin trended down HTN (hypertension) Cont Antihypertensives DVT prophylaxis on lovenox Subjective Date of service: 04/11/17 Interval history: pt seen and examined. denies any chest pain or SOB Now on NSR on monitor Objective - Exam Narrative Exam: General appearance: Present: no acute distress, other (malnurished) - EENT Eyes: PERRL, EOM intact ENT: hearing intact, clear oral mucosa Ears: bilateral: normal - Neck Neck: supple, normal ROM - Respiratory Respiratory effort: normal Respiratory: bilateral: diminished - Cardiovascular Rhythm: regular Heart Sounds: Present: S1 & S2. Absent: gallop, rub Extremities: pulses intact, No edema, normal color, Full ROM - Gastrointestinal General gastrointestinal: Present: soft, non-tender, non-distended, normal bowel sounds - Integumentary Integumentary: clear, warm, dry - Musculoskeletal Musculoskeletal: 1, strength equal bilaterally - Neurologic Neurologic: moves all extremities - Psychiatric Psychiatric: memory intact, appropriate mood/affect, intact judgment & insight - Constitutional Vitals: Vital Signs - 12hr 04/11/17 04/11/17 04/11/17 05:50 06:39 08:31 Temperature 97.6 F Pulse Rate 101 H 102 H Pulse Rate [ 102 H Anterior Bilateral Throughout] Respiratory 18 Rate Respiratory 17 Rate [Anterior Bilateral Throughout] Blood Pressure 120/74 O2 Sat by Pulse 97 97 Oximetry 04/11/17 04/11/17 04/11/17 08:46 08:59 09:19 Temperature 97.6 F Pulse Rate 110 H 104 H Pulse Rate [ 106 H Anterior Bilateral Throughout] Respiratory 21 20 Rate Respiratory 20 Rate [Anterior Bilateral Throughout] Blood Pressure 167/91 O2 Sat by Pulse 98 97 Oximetry 04/11/17 13:30 Temperature Pulse Rate 109 H Pulse Rate [ Anterior Bilateral Throughout] Respiratory Rate Respiratory Rate [Anterior Bilateral Throughout] Blood Pressure 119/65 O2 Sat by Pulse Oximetry - Labs CBC & Chem 7: 04/10/17 04:50 04/10/17 04:50
[2017-04-12] MEDS: DUONEB *Not for PRN Use IH SCH ×4 (02:24→15:00)
[2017-04-12] MEDS: CARDIZEM PO SCH ×2 (07:07→13:21)
[2017-04-12] MEDS ORDERED: LEXISCAN IV ONE ×2 (08:46→08:47)
[2017-04-12] MEDS: BROVANA NEBU IH SCH (09:55)
[2017-04-12] MEDS: PULMICORT IH SCH (09:56)
[2017-04-12] MEDS: LEVAQUIN PO SCH (11:33)
[2017-04-12] MEDS: PLAVIX PO SCH (11:33)
[2017-04-12] MEDS: LOVENOX SUB-Q SCH (11:34)
--- NOTE | 2017-04-12 11:50 | Treadmill Report ---
STRESS TEST ORDERING PHYSICIAN: Dr. Watkins. INDICATION: Cardiac arrhythmias. FINDINGS: There is no scintigraphic evidence of myocardial ischemia. There is evidence of a moderate sized fixed apical wall defect. There is no uptake of the apex also noted on the gated wall imaging. There is evidence of global left ventricular hypokinesis with an ejection fraction measured at 34%. The left ventricular cavity is dilated. There is evidence of increased right ventricular uptake. This suggests a right ventricular pressure or volume overload. IMPRESSION: 1. Abnormal myocardial perfusion scan. 2. Moderate sized fixed apical wall defect suggesting prior infarction. 3. No scintigraphic evidence of myocardial ischemia. 4. Dilated left ventricular cavity with global left ventricular hypokinesis, ejection fraction measured at 34%. 5. Evidence of increased right ventricular uptake suggesting right ventricular pressure or volume overload. 6. Clinical correlation is recommended. JOB# [id number] JAMIE/BRAYDON
--- NOTE | 2017-04-12 12:35 | Progress Note ---
Assessment and Plan Paroxysmal atrial flutter Cardiomyopathy, LVEF 15% Abnormal MPI - moderate size fixed apical wall defect Emphysema on home oxygen therapy Abnormal RV uptake on MPI suggesting RV pressure/volume overload Anemia History of GI bleeding - resolved per patient History of stroke Recommendations: Discontinue lovenox Start eliquis 5 mg po bid Continue plavix Continue diltiazem Patient refusing coronary angiography. He insists that he wants to discuss it first with his PCP Patient will therefore be scheduled an appt in our [place] office 1 week post discharge Subjective Date of service: 04/12/17 Principal diagnosis: Atrial flutter Interval history: Patient underwent a lexsican today without complications Objective Vital Signs Temp Pulse Resp BP Pulse Ox 04/12/17 10:15 97.4 F L 62 20 125/78 97 04/12/17 09:05 93 H 134/80 04/12/17 09:04 86 140/80 04/12/17 09:03 92 H 140/86 04/12/17 09:02 89 152/86 04/12/17 09:01 74 143/88 04/12/17 08:53 84 143/91 04/12/17 05:49 97.8 F 84 22 128/78 97 04/12/17 03:24 79 27 H 96 04/12/17 00:55 98.2 F 82 20 110/64 100 04/11/17 21:11 97 04/11/17 20:24 97.5 F L 91 H 20 135/80 97 04/11/17 19:57 98 H 24 97 04/11/17 18:50 104 H 156/86 04/11/17 17:29 97.8 F 107 H 22 122/77 04/11/17 13:30 109 H 119/65 - Physical Examination HEENT: Positive: PERRL Neck: Positive: trachea midline Cardiac: Positive: Reg Rate and Rhythm Lungs: Positive: Decreased Breath Sounds - Imaging and Cardiology EKG: report reviewed (156/min Marked ST abnormality)
--- NOTE | 2017-04-12 12:44 | Progress Note ---
Subjective Date of service: 04/12/17 Principal diagnosis: Atrial flutter Interval history: Seen and examined at bedside; 24 hour events reviewed; nursing and respiratory care staff consulted; no adverse overnight events reported to me; Objective Vital Signs - 12hr 04/12/17 04/12/17 04/12/17 00:55 03:24 05:49 Temperature 98.2 F 97.8 F Pulse Rate 82 79 84 Respiratory 20 27 H 22 Rate Blood Pressure 110/64 128/78 O2 Sat by Pulse 100 96 97 Oximetry 04/12/17 04/12/17 04/12/17 08:53 09:01 09:02 Temperature Pulse Rate 84 74 89 Respiratory Rate Blood Pressure 143/91 143/88 152/86 O2 Sat by Pulse Oximetry 04/12/17 04/12/17 04/12/17 09:03 09:04 09:05 Temperature Pulse Rate 92 H 86 93 H Respiratory Rate Blood Pressure 140/86 140/80 134/80 O2 Sat by Pulse Oximetry 04/12/17 10:15 Temperature 97.4 F L Pulse Rate 62 Respiratory 20 Rate Blood Pressure 125/78 O2 Sat by Pulse 97 Oximetry Constitutional: no acute distress, alert Eyes: non-icteric ENT: oropharynx moist Neck: supple, no lymphadenopathy Ascultation: Bilateral: diminished breath sounds Cardiovascular: regular rate and rhythm Gastrointestinal: normoactive bowel sounds, soft, non-tender Integumentary: normal Extremities: no cyanosis, no edema Neurologic: normal mental status, non-focal exam, pupils equal and round, CN II- XII normal Psychiatric: depressed CBC and BMP: 04/10/17 04:50 04/10/17 04:50 ABG, PT/INR, D-dimer: ABG POC ABG pH 7.406 (7.35-7.45) 04/09/17 21:02 POC ABG pCO2 51.2 (35-45) H 04/09/17 21:02 POC ABG pO2 110 (80-105) H 04/09/17 21:02 POC ABG HCO3 32.2 04/09/17 21:02 POC ABG Total CO2 34 04/09/17 21:02 POC ABG O2 Sat 98 04/09/17 21:02 PT/INR, D-dimer PT 12.8 Sec. (12.2-14.9) 04/09/17 11:43 INR 0.92 (0.87-1.13) 04/09/17 11:43 D-Dimer 257.5 ng/mlDDU (0-234) H 04/09/17 11:43 Abnormal lab findings: Abnormal Labs 04/09/17 04/09/17 04/09/17 14:57 16:42 21:02 RBC Hgb 11.2 L Hct MCHC 31 L RDW 19.1 H Lymph % (Auto) 7.9 L Lymph # 0.7 L Seg Neutrophils % 86.9 H Seg Neuts % (Manual) Lymphocytes % (Manual) Lymphocytes # (Manual) POC ABG pH 7.283 L POC ABG pCO2 68.7 H 51.2 H POC ABG pO2 71 L 110 H BUN Creatinine Glucose Calcium CK-MB (CK-2) CK-MB (CK-2) Rel Index Total Protein Albumin 04/10/17 04/10/17 04/10/17 04:50 04:50 11:37 RBC 3.58 L Hgb 10.1 L Hct 33.1 L MCHC 31 L RDW 19.0 H Lymph % (Auto) Lymph # Seg Neutrophils % Seg Neuts % (Manual) 88.0 H Lymphocytes % (Manual) 8.0 L Lymphocytes # (Manual) 0.6 L POC ABG pH POC ABG pCO2 POC ABG pO2 BUN 23 H Creatinine 0.5 L Glucose 104 H Calcium 8.2 L CK-MB (CK-2) 13.0 H CK-MB (CK-2) Rel Index 13.8 H Total Protein 5.2 L Albumin 3.1 L
[2017-04-12 12:54] VITALS: BP 114/65
--- NOTE | 2017-04-12 13:25 | Discharge Summary ---
Providers - Providers Date of Admission: 04/09/17 14:03 Date of discharge: 04/12/17 Attending physician: LUZ MARINA SALCEDO 04/09/17 14:19 Consult to Physician [CONS] Routine Consulting Provider: PATRICIA MADDEN Reason For Exam: Resp failure Place consult to:: Dr. Castañeda Notified:: Naomi SRIVASTAVA Phone number called:: Was contact made?: Yes If yes, spoke with:: [facility] Time called:: 16:55 04/10/17 19:43 Consult to Physician [CONS] Routine Consulting Provider: YAZMIN YOUNG Reason For Exam: atrial flutter Place consult to:: transaction manager cardiology Notified:: ANTHONY Was contact made?: Yes Time called:: 10:05 Primary care physician: CHRIS STANLEY Hospitalization Condition: Stable Hospital course: Discharge Diagnosis and management: Acute on chronic respiratory failure with hypercapnia (POA) Patient initiated on BIPAP on admission, placed on IV solumedrol IV Levaquin and Duonebs q3HPRN and q6 RTC. Pulmonary consulted, CTA negative for PE patient was resting on 2L N/c before admission COPD exacerbation As above Paroxysmal atrial fibrillation - placed on therapeutic lovenox and cardizem - consulted cardiology, recommended to start on eliquis - lovenox d/mynor on discharge Chest pain, likely from CAD resolved now Lexiscan was abnormal, 2d echo showed EF 15% troponin trended down, refused cardiac cath HTN (hypertension) Cont Antihypertensives Cardiomyopathy, LVEF 15% - Abnormal MPI - moderate size fixed apical wall defect Anemia with History of GI bleeding - resolved per patient History of stroke - cont plavix, statin Disposition: DC-01 TO HOME OR SELFCARE Time spent for discharge: 32 minutes Core Measure Documentation - Palliative Care Palliative Care/ Comfort Measures: Not Applicable - Core Measures Any of the following diagnoses?: heart failure - Heart Failure Discharge Requirements DANITA/ARB for LVSD if EF <40%: No Reason for no DANITA/ARB: Hypotension Beta maddie at discharge: No Reason for no beta maddie on DC: COPD Exam - Physical Exam Narrative exam: General appearance: Present: no acute distress, other (malnurished) - EENT Eyes: PERRL, EOM intact ENT: hearing intact, clear oral mucosa Ears: bilateral: normal - Neck Neck: supple, normal ROM - Respiratory Respiratory effort: normal Respiratory: bilateral: diminished - Cardiovascular Rhythm: regular Heart Sounds: Present: S1 & S2. Absent: gallop, rub Extremities: pulses intact, No edema, normal color, Full ROM - Gastrointestinal General gastrointestinal: Present: soft, non-tender, non-distended, normal bowel sounds - Integumentary Integumentary: clear, warm, dry - Musculoskeletal Musculoskeletal: 1, strength equal bilaterally - Neurologic Neurologic: moves all extremities - Psychiatric Psychiatric: memory intact, appropriate mood/affect, intact judgment & insight - Constitutional Vitals: Temp Pulse Resp BP Pulse Ox 97.2 F L 79 18 114/65 98 04/12/17 12:53 04/12/17 12:53 04/12/17 12:53 04/12/17 12:53 04/12/17 12:53 Plan Activity: advance as tolerated Weight Bearing Status: Non-Weight Bearing Diet: low fat, low salt Follow up with: CHRIS STANLEY MD [Primary Care Provider] - 3-5 Days Prescriptions: AtorvaSTATin [Lipitor] 20 mg PO QHS #30 tab Apixaban [Eliquis] 5 mg PO Q12HR #60 tablet Diltiazem [Cardizem] 60 mg PO Q6HR #120 tablet Levofloxacin [Levaquin TAB] 750 mg PO Q24HR #3 tablet predniSONE [Deltasone] 20 mg PO QDAY #5 tab
[2017-04-12] MEDS ORDERED: ELIQUIS PO SCH (22:00)
== END 2017-04-12 15:48 | disposition home or self-care (01) | DRG 189 ==
LOC: ED 11:19 → 4A 14:03
PROVIDERS: ADMIT Internal Medicine; ATTEND Internal Medicine
PROC: 5A09457 Assistance with Respiratory Ventilation, 24-96 Consecutive Hours, Continuous Positive Airway Pressure (ICD-10-PCS; principal; 2017-04-09)
PROC: 4A033R1 Measurement of Arterial Saturation, Peripheral, Percutaneous Approach (ICD-10-PCS; 2017-04-09)
DX: J96.22 Acute and chronic respiratory failure with hypercapnia (principal); J44.1 Chronic obstructive pulmonary disease with (acute) exacerbation; I48.92 Unspecified atrial flutter; I42.9 Cardiomyopathy, unspecified; J44.0 Chronic obstructive pulmonary disease with (acute) lower respiratory infection; I10 Essential (primary) hypertension; J20.9 Acute bronchitis, unspecified; F17.210 Nicotine dependence, cigarettes, uncomplicated; I48.0 Paroxysmal atrial fibrillation; H26.9 Unspecified cataract; D64.9 Anemia, unspecified; I25.10 Atherosclerotic heart disease of native coronary artery without angina pectoris; Z53.29 Procedure and treatment not carried out because of patient's decision for other reasons; Z82.49 Family history of ischemic heart disease and other diseases of the circulatory system; Z79.02 Long term (current) use of antithrombotics/antiplatelets; Z79.899 Other long term (current) drug therapy; Z99.81 Dependence on supplemental oxygen; Z86.73 Personal history of transient ischemic attack (TIA), and cerebral infarction without residual deficits
CPT/HCPCS: 36415; 36600; 71010; 71275; 78452; 80048; 80053; 80061; 80074; 82550; 82553; 82803; 83880; 84484; 85007; 85025; 85379; 85610; 85730; 87040; 93005; 93010; 93017; 93306; 94640; 94644; 94660; 94760; 96361; 96374; A9502; J1650; J1956; J2785; J2920; J2930; J7030; Q9967